=== PATIENT | male | born 1955 | race African-American/Black ===

== ENCOUNTER 2016-09-23 13:38 | Emergency (ER) | payer MEDICARE ==
[2016-09-23] MEDS ORDERED: ONDANSETRON 4 MG TAB.RAPDIS PO ONE (13:52)
--- NOTE | 2016-09-23 13:53 | ER Document Report ---
ED Medical Screen (RME) - General Stated Complaint: ABDOMINAL PAIN Mode of Arrival: Ambulatory Information source: Patient Notes: Patient presents to the emergency department with abdominal pain and vomiting since Wednesday. Last emesis 2 hours ago. Last bowel movement yesterday, last normal BM wednesday, reports decreased appetite. I have greeted and performed a rapid initial assessment of this patient. A comprehensive ED assessment and evaluation of the patient, analysis of test results and completion of the medical decision making process will be conducted by additional ED providers. TRAVEL OUTSIDE OF THE [place] IN LAST 30 DAYS: No - Related Data Allergies/Adverse Reactions: No Known Allergies Allergy (Verified 09/23/16 13:49) Past Medical History - Past Medical History Cardiac Medical History: Reports: Hx Coronary Artery Disease, Hx Hypertension Endocrine Medical History: Reports: Hx Diabetes Mellitus Type 2 GI Medical History: Reports: Hx Gastroesophageal Reflux Disease Musculoskeltal Medical History: Reports Hx Arthritis Past Surgical History: Reports: Hx Open Heart Surgery - stent - Immunizations Hx Diphtheria, Pertussis, Tetanus Vaccination: Yes
[2016-09-23 14:46] LABS: APPEARANCE,URINE CLEAR; BILIRUBIN,URINE NEGATIVE (NEGATIVE); GLUCOSE, URINE NEGATIVE (NEGATIVE); KETONES,URINE NEGATIVE (NEGATIVE); LEUKOCYTE ESTERASE,URINE NEGATIVE (NEGATIVE); NITRITE,URINE NEGATIVE (NEGATIVE); PROTEIN,URINE 30 mg/dL (NEGATIVE); URINE SPECIFIC GRAVITY 1.012; UROBILINOGEN,URINE NEGATIVE mg/dL (<2.0)
[2016-09-23 14:50] LABS: ABSOLUTE LYMPHOCYTES (AUTO) 1.7 10^3/uL (0.5-4.7); ABSOLUTE MONOCYTES (AUTO) 0.5 10^3/uL (0.1-1.4); ABSOLUTE NEUT (AUTO) 5.1 10^3/uL (1.7-8.2); BASOPHILS % (AUTO) 0.1 % (0-2); EOSINOPHILS % (AUTO) 0.3 % (0-6); HEMATOCRIT 47.2 % (37.9-51.0); HGB HCT DIFFERENCE -2.2; LYMPHOCYTES % (AUTO) 23.7 % (13-45); MEAN CORPUSCULAR HEMOGLOBIN 26.2 pg (27.0-33.4); MEAN CORPUSCULAR HGB CONC 31.8 g/dL (32.0-36.0); MEAN CORPUSCULAR VOLUME 82 fl (80-97); MONOCYTES % (AUTO) 6.6 % (3-13); RED BLOOD COUNT 5.73 10^6/uL (4.35-5.55); RED CELL DISTRIBUTION WIDTH 14.5 % (11.5-14.0); SEGMENTED NEUTROPHILS % (AUTO) 69.3 % (42-78); WHITE BLOOD COUNT 7.4 10^3/uL (4.0-10.5)
[2016-09-23 15:10] LABS: ALANINE AMINOTRANSFERASE 19 U/L (21-72); ALBUMIN 4.4 g/dL (3.5-5.0); ALKALINE PHOSPHATASE 92 U/L (38-126); ANION GAP 13 (5-19); ASPARTATE AMINO TRANSFERASE 23 U/L (17-59); BILIRUBIN,TOTAL 1.3 mg/dL (0.2-1.3); BLOOD UREA NITROGEN 14 mg/dL (7-20); CALCIUM 10.3 mg/dL (8.4-10.2); CARBON DIOXIDE 31 mmol/L (22-30); CHLORIDE 97 mmol/L (98-107); CREATININE RESULT 1.36 mg/dL (0.52-1.25); GLUCOSE 84 mg/dL (75-110); LIPASE 118.6 U/L (23-300); POTASSIUM 4.4 mmol/L (3.6-5.0); SODIUM 140.8 mmol/L (137-145)
--- NOTE | 2016-09-23 15:23 | ER Document Report ---
ED General - General Chief Complaint: Abdominal Pain Stated Complaint: ABDOMINAL PAIN Time seen by provider: 15:21 Mode of Arrival: Ambulatory Notes: This is a 60-year-old male with a history of hypertension and type II diabetes mellitus and hyperlipidemia that presents today with hypogastric pain since Wednesday night. He states that his intermittent sharp 10 out of 10 pain that radiates to the epigastric region. Admits to subjective fever and vomiting. He states that he vomited twice this morning. Denies chest pain and chills. Here in the emergency department he was given Zofran and he states that his abdominal pain has completely went away. TRAVEL OUTSIDE OF THE [place] IN LAST 30 DAYS: No - Related Data Allergies/Adverse Reactions: No Known Allergies Allergy (Verified 09/23/16 13:49) Past Medical History - General Information source: Patient - Social History Smoking Status: Never Smoker Chew tobacco use (# tins/day): No Frequency of alcohol use: None Drug Abuse: None Family History: Reviewed & Not Pertinent Patient has suicidal ideation: No Patient has homicidal ideation: No - Past Medical History Cardiac Medical History: Reports: Hx Coronary Artery Disease, Hx Hypertension Endocrine Medical History: Reports: Hx Diabetes Mellitus Type 2 Renal/ Medical History: Denies: Hx Peritoneal Dialysis GI Medical History: Reports: Hx Gastroesophageal Reflux Disease Musculoskeltal Medical History: Reports Hx Arthritis Past Surgical History: Reports: Hx Open Heart Surgery - stent - Immunizations Hx Diphtheria, Pertussis, Tetanus Vaccination: Yes Review of Systems - Review of Systems Constitutional: Fever - Subjective fever EENT: No symptoms reported Cardiovascular: No symptoms reported. denies: Chest pain Respiratory: No symptoms reported Gastrointestinal: See HPI Genitourinary: No symptoms reported. denies: Burning, Dysuria Male Genitourinary: denies: Testicular pain, Penile discharge Musculoskeletal: No symptoms reported Skin: No symptoms reported Hematologic/Lymphatic: No symptoms reported Neurological/Psychological: No symptoms reported Physical Exam - Vital signs Vitals: Temp Pulse Resp BP Pulse Ox 98.1 F 89 18 148/89 H 98 09/23/16 15:53 09/23/16 15:53 09/23/16 15:53 09/23/16 15:53 09/23/16 15:53 - General General appearance: Appears well In distress: None - HEENT Head: Normocephalic, Atraumatic, Open wounds Eyes: Normal Conjunctiva: Normal - Respiratory Respiratory status: No respiratory distress Breath sounds: Normal - Cardiovascular Rhythm: Regular Heart sounds: Normal auscultation - Abdominal Inspection: Normal Bowel sounds: Normal Tenderness: Nontender - Back Back: Normal. No: CVA tenderness - Extremities General upper extremity: Normal inspection, Nontender, Normal ROM, Normal strength General lower extremity: Normal inspection, Nontender, Normal ROM, Normal strength - Neurological Cognition: Normal. No: Confused - Psychological Associated symptoms: Normal affect, Normal mood - Skin Skin Temperature: Warm Skin Moisture: Dry Skin Color: Normal Course - Re-evaluation Re-evalutation: 09/23/16 15:45 She currently denies all symptoms. He states that he is much better after receiving Zofran. 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 Patient denies chest pain and abdominal pain. He was given multiple opportunities to ask questions. Labs were shared with the patient. - Vital Signs Vital signs: Temp Pulse Resp BP Pulse Ox 98.1 F 89 18 148/89 H 98 09/23/16 15:53 09/23/16 15:53 09/23/16 15:53 09/23/16 15:53 09/23/16 15:53 - Laboratory Result Diagrams: 09/23/16 13:58 09/23/16 13:58 Laboratory results interpreted by me: 09/23/16 09/23/16 09/23/16 13:58 13:58 13:58 RBC 5.73 H MCH 26.2 L MCHC 31.8 L RDW 14.5 H Chloride 97 L Carbon Dioxide 31 H Creatinine 1.36 H Est GFR (Non-Af Amer) 53 L Calcium 10.3 H ALT 19 L Urine Protein 30 H Discharge - Discharge Clinical Impression: Abdominal pain Qualifiers: Abdominal location: periumbilical Qualified Code(s): R10.33 - Periumbilical pain Condition: Good Disposition: HOME, SELF-CARE Additional Instructions: Return to the emergency department if symptoms worsen. Follow-up with primary care physician and linseed oil boiler as soon as possible. Abdominal Pain There are many causes of abdominal pain. Pain can mean a serious problem requiring surgery (such as appendicitis). It can also be an innocent problem that goes away on its own (such as a viral infection). Often, time must pass to determine the cause of pain. The physician does not feel that hospitalization is necessary, at present. Things may change within the next 24 hours. Call the doctor or come back for re- examination if any problems occur, such as: (1) Pain that becomes more severe, steady, or becomes concentrated in one specific area. Also, pain that is more severe with movement or coughing. (2) Vomiting that persists or becomes more frequent. (3) Blood in the vomitus, urine, or bowel movements. Blood in the stool may have a tarry or black appearance. (4) Shaking chills or fever greater than 100 degrees F. (5) The abdomen becomes more distended or swollen. (6) Bowel movements cease. (7) Failure to improve as expected. Prescriptions: Ondansetron [Zofran Odt 4 mg Tablet] 1 - 2 tab PO Q4H PRN #15 tab.rapdis PRN Reason: For Nausea/Vomiting Referrals: NAJMA RAM MD [Primary Care Provider] - Follow up as needed
[2016-09-23 15:55] VITALS: BP 148/89
== END 2016-09-23 15:56 | disposition home or self-care (01) ==
LOC: ER 13:38
DX: R10.33 Periumbilical pain (principal); E11.9 Type 2 diabetes mellitus without complications; I10 Essential (primary) hypertension; R11.10 Vomiting, unspecified; I25.10 Atherosclerotic heart disease of native coronary artery without angina pectoris; Z87.19 Personal history of other diseases of the digestive system; Z98.61 Coronary angioplasty status
CPT/HCPCS: 99284; 36415; 83690; 85025; 80053; 81001; A9270; S0119

== ENCOUNTER → 2016-10-05 | Outpatient (CLI) | payer MEDICARE ==
[2016-10-05 09:23] LABS: ABSOLUTE EOSINOPHILS # (AUTO) 0.1 10^3/uL (0.0-0.6); ABSOLUTE LYMPHOCYTES (AUTO) 2.6 10^3/uL (0.5-4.7); ABSOLUTE MONOCYTES (AUTO) 0.6 10^3/uL (0.1-1.4); ABSOLUTE NEUT (AUTO) 3.1 10^3/uL (1.7-8.2); BASOPHILS % (AUTO) 0.3 % (0-2); EOSINOPHILS % (AUTO) 1.5 % (0-6); HEMATOCRIT 44.1 % (37.9-51.0); HEMOGLOBIN 14.3 g/dL (13.5-17.0); HGB HCT DIFFERENCE -1.2; LYMPHOCYTES % (AUTO) 39.9 % (13-45); MEAN CORPUSCULAR HEMOGLOBIN 26.5 pg (27.0-33.4); MEAN CORPUSCULAR HGB CONC 32.5 g/dL (32.0-36.0); MEAN CORPUSCULAR VOLUME 82 fl (80-97); MONOCYTES % (AUTO) 9.1 % (3-13); RED CELL DISTRIBUTION WIDTH 14.6 % (11.5-14.0); SEGMENTED NEUTROPHILS % (AUTO) 49.2 % (42-78); WHITE BLOOD COUNT 6.4 10^3/uL (4.0-10.5)
[2016-10-05 09:41] LABS: ALANINE AMINOTRANSFERASE 25 U/L (21-72); ALBUMIN 4.6 g/dL (3.5-5.0); ALKALINE PHOSPHATASE 86 U/L (38-126); AMYLASE 63 U/L (30-110); ANION GAP 13 (5-19); ASPARTATE AMINO TRANSFERASE 20 U/L (17-59); BILIRUBIN,TOTAL 1.1 mg/dL (0.2-1.3); BLOOD UREA NITROGEN 23 mg/dL (7-20); CALCIUM 10.4 mg/dL (8.4-10.2); CARBON DIOXIDE 29 mmol/L (22-30); CHLORIDE 100 mmol/L (98-107); CREATININE RESULT 1.61 mg/dL (0.52-1.25); GLUCOSE 142 mg/dL (75-110); POTASSIUM 4.3 mmol/L (3.6-5.0); SODIUM 142.1 mmol/L (137-145); TOTAL PROTEIN 7.4 g/dL (6.3-8.2)
== END ==
LOC: OD 08:35
PROVIDERS: ATTEND Specialist
DX: R10.9 Unspecified abdominal pain (principal); K31.0 Acute dilatation of stomach; D50.9 Iron deficiency anemia, unspecified; R11.11 Vomiting without nausea
CPT/HCPCS: 36415; 80053; 82150; 83690; 85025

== ENCOUNTER 2016-10-23 08:31 | Day surgery (SDC) | payer MEDICARE ==
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
[~2016-10-23 08:31] MED LIST: EPINEPHRINE INJ 1 MG/10 ML DISP.SYRIN ONE; FENTANYL CITRATE INJ/PF 100 MCG/2 ML AMPUL ONE; FLUMAZENIL INJ 0.5 MG/5 ML VIAL IV ONE; GLYCOPYRROLATE INJ 0.4 MG/2 ML VIAL ONE; MIDAZOLAM 2 MG/2 ML INJ ONE; NALOXONE HCL INJ/PF 0.4 MG/1 ML SDV ONE; ONDANSETRON HCL INJ/PF 4 MG/2 ML SDV ONE; PROMETHAZINE HCL INJ 25 MG/1 ML VIAL ONE
[2016-10-23 10:48] VITALS: BP 136/72
[2016-10-23 10:52] LABS: ABSOLUTE EOSINOPHILS # (AUTO) 0.1 10^3/uL (0.0-0.6); ABSOLUTE LYMPHOCYTES (AUTO) 2.3 10^3/uL (0.5-4.7); ABSOLUTE MONOCYTES (AUTO) 0.6 10^3/uL (0.1-1.4); BASOPHILS % (AUTO) 0.6 % (0-2); EOSINOPHILS % (AUTO) 1.6 % (0-6); HEMATOCRIT 43.6 % (37.9-51.0); HEMOGLOBIN 14.1 g/dL (13.5-17.0); HGB HCT DIFFERENCE -1.3; LYMPHOCYTES % (AUTO) 32.6 % (13-45); MEAN CORPUSCULAR HEMOGLOBIN 26.2 pg (27.0-33.4); MEAN CORPUSCULAR HGB CONC 32.4 g/dL (32.0-36.0); MEAN CORPUSCULAR VOLUME 81 fl (80-97); RED BLOOD COUNT 5.39 10^6/uL (4.35-5.55); RED CELL DISTRIBUTION WIDTH 14.5 % (11.5-14.0); SEGMENTED NEUTROPHILS % (AUTO) 57.2 % (42-78)
[2016-10-23 11:08] LABS: ALANINE AMINOTRANSFERASE 37 U/L (21-72); ALBUMIN 3.8 g/dL (3.5-5.0); ALKALINE PHOSPHATASE 88 U/L (38-126); AMYLASE 38 U/L (30-110); ANION GAP 10 (5-19); ASPARTATE AMINO TRANSFERASE 25 U/L (17-59); BILIRUBIN,TOTAL 1.3 mg/dL (0.2-1.3); BLOOD UREA NITROGEN 21 mg/dL (7-20); CARBON DIOXIDE 30 mmol/L (22-30); CHLORIDE 98 mmol/L (98-107); CREATININE RESULT 1.38 mg/dL (0.52-1.25); GLUCOSE 166 mg/dL (75-110); LIPASE 193.3 U/L (23-300); POTASSIUM 4.3 mmol/L (3.6-5.0); SODIUM 138.1 mmol/L (137-145); TOTAL PROTEIN 7.3 g/dL (6.3-8.2)
[2016-10-23 11:39] LABS: CARCINOEMBRYONIC ANTIGEN 1.9 ng/mL (<3.0)
--- NOTE | 2016-10-23 18:09 | OPERATIVE REPORT E ---
Operative Report NAME: GEGE SPEARS : 1955 AGE: 60Y DATE OF SURGERY: 10/23/2016 ROOM: PREOPERATIVE DIAGNOSES: 1. VOMITING. 2. ABDOMINAL PAIN. 3. HIATUS HERNIA. POSTOPERATIVE DIAGNOSIS: LARGE HIATUS HERNIA ABOUT 6 CM IN LENGTH SLIDING HIATUS HERNIA. OPERATION: 1. Esophagoscopy. 2. Gastroscopy. 3. Duodenoscopy. SURGEON: ANN MARIE JONES M.D. ANESTHESIA: Versed 2, fentanyl 50. We did not give the patient Robinul, there was question that he may have glaucoma. TISSUE REMOVED OR ALTERED: Gastric biopsy for H. pylori. PROCEDURE: Baby scope passed under guided vision, no difficulties. Esophagoscopy; junction at 30. Mild esophagitis. Gastroscopy; large hiatus hernia 6 cm. Mild gastritis. Biopsy obtained H. pylori. Duodenoscopy; no ulcers. Mild duodenitis. CONCLUSIONS: Large hiatus hernia with mild esophagitis, mild gastritis, mild duodenitis. PLAN: Continue Nexium. Soft diet. Lab studies. Awaiting biopsy. DICTATING PHYSICIAN: ANN MARIE JONES M.D. [id number] PHY#: [id number] ID: [id number] JOB#: [id number] ACCT: [id number] cc:ANN MARIE JONES M.D. >
--- NOTE | 2016-10-23 18:16 | DISCHARGE SUMMARY E ---
Discharge Summary NAME: GEGE SPEARS : 1955 AGE: 60Y ADMITTED: 10/23/2016 DISCHARGED: 10/23/2016 HOSPITAL COURSE : The patient is a 60-year-old male known to me for many years regarding reflux and large hernia presented with exacerbation of reflux and vomiting, abdominal bloating. Upper scope today shows no ulcers, no malignancy, large hiatus hernia with moderate gastritis, mild esophagitis, mild duodenitis. DISCHARGE PLAN: Awaiting biopsy results, lab studies. Continue Nexium. Consider weight reduction. DICTATING PHYSICIAN: ANN MARIE JONES M.D. [id number] PHY#: [id number] ID: [id number] JOB#: [id number] ACCT: [id number] cc:ANN MARIE JONES M.D. >
== END 2016-10-23 11:05 | disposition home or self-care (01) ==
LOC: END 08:31
PROVIDERS: ATTEND Specialist
PROC: 0DB68ZX Excision of Stomach, Via Natural or Artificial Opening Endoscopic, Diagnostic (ICD-10-PCS; principal; 2016-10-23 09:00)
DX: K21.9 Gastro-esophageal reflux disease without esophagitis (principal); K44.9 Diaphragmatic hernia without obstruction or gangrene; K21.0 Gastro-esophageal reflux disease with esophagitis; K31.9 Disease of stomach and duodenum, unspecified; R97.0 Elevated carcinoembryonic antigen [CEA]; Z12.5 Encounter for screening for malignant neoplasm of prostate; K29.80 Duodenitis without bleeding; E11.9 Type 2 diabetes mellitus without complications; Z79.899 Other long term (current) drug therapy; Z79.82 Long term (current) use of aspirin; Z98.61 Coronary angioplasty status
CPT/HCPCS: 43239; 36415; 82962; 82150; 82378; 83690; 85025; 80053; 88342 ×2; 88305 ×2; G0103; J2250; J3010; J2405; J0171; J2310; J2550; J3490

== ENCOUNTER 2018-01-25 14:21 | Emergency (ER) | payer MEDICARE ==
[2018-01-25] MEDS ORDERED: METFORMIN HCL 500 MG TABLET PO ONE (15:33)
--- NOTE | 2018-01-25 15:35 | ER Document Report ---
ED Medical Screen (RME) - General Chief Complaint: High Blood Sugar Stated Complaint: BLOOD SUGAR PROBLEMS Time Seen by Provider: 01/25/18 15:25 Notes: RAPID MEDICAL EVALUATION DISCLOSURE I have seen this patient as part of a Rapid Medical Evaluation and, if applicable, placed any initially appropriate orders. The patient will be seen and fully evaluated, including a full history and physical exam, by a provider ( in Main ED or Fast Track) when a room becomes available. 62-year-old male PMH diabetes here with complaints of elevated blood sugar around 200-240. He has run out of his Glucophage for the last 2 weeks and does not have any refills. He does not like to go to the doctor and therefore he has not gone to see his PCP to get a refill. He denies any symptoms other than increased thirst and urination but no dysuria fevers chills nausea vomiting abdominal pain. EXAM CTAB RRR No abdominal TTP TRAVEL OUTSIDE OF THE [place] IN LAST 30 DAYS: No - Related Data Allergies/Adverse Reactions: No Known Allergies Allergy (Verified 10/23/16 08:35) Past Medical History - Social History Chew tobacco use (# tins/day): No Frequency of alcohol use: None Drug Abuse: None - Past Medical History Cardiac Medical History: Reports: Hx Coronary Artery Disease, Hx Heart Attack, Hx Hypertension Pulmonary Medical History: Denies: Hx Asthma, Hx Bronchitis, Hx COPD, Hx Pneumonia Neurological Medical History: Denies: Hx Cerebrovascular Accident, Hx Seizures Endocrine Medical History: Reports: Hx Diabetes Mellitus Type 2 Renal/ Medical History: Denies: Hx Peritoneal Dialysis GI Medical History: Reports: Hx Gastroesophageal Reflux Disease, Hx Hiatal Hernia Musculoskeltal Medical History: Reports Hx Arthritis Past Surgical History: Reports: Hx Open Heart Surgery - stent - Immunizations Hx Diphtheria, Pertussis, Tetanus Vaccination: No Physical Exam - Vital signs Vitals: Temp Pulse Resp BP Pulse Ox 98.2 F 91 16 193/99 H 95 01/25/18 14:47 01/25/18 14:47 01/25/18 14:47 01/25/18 14:47 01/25/18 14:47 Course - Vital Signs Vital signs: Temp Pulse Resp BP Pulse Ox 98.2 F 91 16 193/99 H 95 01/25/18 14:47 01/25/18 14:47 01/25/18 14:47 01/25/18 14:47 01/25/18 14:47
[2018-01-25 16:08] LABS: ABSOLUTE EOSINOPHILS # (AUTO) 0.1 10^3/uL (0.0-0.6); ABSOLUTE LYMPHOCYTES (AUTO) 2.7 10^3/uL (0.5-4.7); ABSOLUTE MONOCYTES (AUTO) 0.7 10^3/uL (0.1-1.4); ABSOLUTE NEUT (AUTO) 4.8 10^3/uL (1.7-8.2); BASOPHILS % (AUTO) 0.4 % (0-2); EOSINOPHILS % (AUTO) 0.9 % (0-6); HEMATOCRIT 47.1 % (37.9-51.0); HEMOGLOBIN 15.4 g/dL (13.5-17.0); LYMPHOCYTES % (AUTO) 32.9 % (13-45); MEAN CORPUSCULAR HEMOGLOBIN 26.4 pg (27.0-33.4); MEAN CORPUSCULAR HGB CONC 32.6 g/dL (32.0-36.0); MEAN CORPUSCULAR VOLUME 81 fl (80-97); MONOCYTES % (AUTO) 7.9 % (3-13); PLATELET COUNT 319 10^3/uL (150-450); RED BLOOD COUNT 5.83 10^6/uL (4.35-5.55); RED CELL DISTRIBUTION WIDTH 14.6 % (11.5-14.0); SEGMENTED NEUTROPHILS % (AUTO) 57.9 % (42-78); TOTAL CELLS COUNTED % (AUTO) 100 %; WHITE BLOOD COUNT 8.2 10^3/uL (4.0-10.5)
[2018-01-25 16:17] LABS: APPEARANCE,URINE CLEAR; BILIRUBIN,URINE NEGATIVE (NEGATIVE); COLOR,URINE YELLOW; GLUCOSE, URINE >=500 mg/dL (NEGATIVE); KETONES,URINE NEGATIVE (NEGATIVE); LEUKOCYTE ESTERASE,URINE NEGATIVE (NEGATIVE); NITRITE,URINE NEGATIVE (NEGATIVE); PROTEIN,URINE >=500 mg/dL (NEGATIVE); URINE SPECIFIC GRAVITY 1.023; UROBILINOGEN,URINE NEGATIVE mg/dL (<2.0)
[2018-01-25 16:23] LABS: ALANINE AMINOTRANSFERASE 38 U/L (21-72); ALBUMIN 4.1 g/dL (3.5-5.0); ALKALINE PHOSPHATASE 166 U/L (38-126); ANION GAP 10 (5-19); ASPARTATE AMINO TRANSFERASE 32 U/L (17-59); BILIRUBIN,DIRECT 0.3 mg/dL (0.0-0.4); BILIRUBIN,TOTAL 1.3 mg/dL (0.2-1.3); BLOOD UREA NITROGEN 15 mg/dL (7-20); CALCIUM 10.3 mg/dL (8.4-10.2); CARBON DIOXIDE 30 mmol/L (22-30); CHLORIDE 100 mmol/L (98-107); GLUCOSE 295 mg/dL (75-110); PHOSPHORUS 4.2 mg/dL (2.5-4.5); POTASSIUM 4.2 mmol/L (3.6-5.0); SODIUM 140.3 mmol/L (137-145); TOTAL PROTEIN 7.7 g/dL (6.3-8.2)
[2018-01-25] MEDS ORDERED: NORMAL SALINE 1000 ML 1,500 ML IV ONE (17:29)
[2018-01-25] MEDS ORDERED: LISINOPRIL 10 MG TABLET PO ONE (17:30)
--- NOTE | 2018-01-25 17:37 | ER Document Report ---
ED General - General Chief Complaint: High Blood Sugar Stated Complaint: BLOOD SUGAR PROBLEMS Time Seen by Provider: 01/25/18 15:25 Notes: Patient is a 62-year-old male who states he has been out of his blood pressure medications for 1 month and his metformin for greater than 2 months. Patient states he has 1 more tablet of glyburide. He does not remember the metformin, lisinopril, or glyburide dosages. Patient comes with his 's urging secondary to some increased urination. He denies any headache, chest pain, abdominal pain, nausea, vomiting, or fevers. TRAVEL OUTSIDE OF THE [place] IN LAST 30 DAYS: No - HPI Onset: Other - See above Onset/Duration: Gradual Quality of pain: No pain Severity: None Pain Level: Denies - See above Associated symptoms: Other - See above Exacerbated by: Denies Relieved by: Denies Similar symptoms previously: No Recently seen / treated by doctor: No - Related Data Allergies/Adverse Reactions: No Known Allergies Allergy (Verified 10/23/16 08:35) Past Medical History - General Information source: Patient - Social History Smoking Status: Unknown if Ever Smoked Cigarette use (# per day): No Chew tobacco use (# tins/day): No Smoking Education Provided: No Frequency of alcohol use: None Drug Abuse: None Family History: Reviewed & Not Pertinent Patient has suicidal ideation: No Patient has homicidal ideation: No - Past Medical History Cardiac Medical History: Reports: Hx Coronary Artery Disease, Hx Heart Attack, Hx Hypertension Pulmonary Medical History: Denies: Hx Asthma, Hx Bronchitis, Hx COPD, Hx Pneumonia Neurological Medical History: Denies: Hx Cerebrovascular Accident, Hx Seizures Endocrine Medical History: Reports: Hx Diabetes Mellitus Type 2 Renal/ Medical History: Denies: Hx Peritoneal Dialysis GI Medical History: Reports: Hx Gastroesophageal Reflux Disease, Hx Hiatal Hernia Musculoskeltal Medical History: Reports Hx Arthritis Past Surgical History: Reports: Hx Open Heart Surgery - stent - Immunizations Hx Diphtheria, Pertussis, Tetanus Vaccination: No Review of Systems - Review of Systems Constitutional: denies: Fever EENT: denies: Eye discharge, Nose discharge Cardiovascular: denies: Syncope, Dizziness Respiratory: denies: Short of breath Gastrointestinal: denies: Vomiting Genitourinary: denies: Dysuria Musculoskeletal: denies: Leg swelling Skin: Other - no hives. denies: Rash Neurological/Psychological: Other - no slurred speech -: Yes All other systems reviewed and negative Physical Exam - Vital signs Vitals: Temp Pulse Resp BP Pulse Ox 98.2 F 91 16 193/99 H 95 01/25/18 14:47 01/25/18 14:47 01/25/18 14:47 01/25/18 14:47 01/25/18 14:47 Notes: Reviewed vital signs and nursing note as charted by RN. CONSTITUTIONAL: Alert and oriented and responds appropriately to questions. Well -appearing; well-nourished HEAD: Normocephalic; atraumatic EYES: PERRL; Conjunctivae clear, sclerae non-icteric ENT: Normal nose; no rhinorrhea; moist mucous membranes NECK: Supple without meningismus; non-tender CARD: Regular rate and rhythm; no murmurs RESP: Normal chest excursion without splinting or tachypnea; breath sounds clear and equal bilaterally ABD/GI: Normal bowel sounds; non-distended; soft, non-tender BACK: The back appears normal and is non-tender to palpation EXT: Normal ROM in all joints; non-tender to palpation, no edema SKIN: Normal color for age and race; warm; no acute lesions noted NEURO: Moves all extremities equally; Motor and sensory function intact PSYCH: The patient's mood and manner are appropriate. Grooming and personal hygiene are appropriate. Course - Re-evaluation Re-evalutation: Given the above history and physical examination with vital signs as recorded showing elevated blood pressure, we will obtain basic labs including kidney function and urine analysis. Accu-Chek as recorded. 01/25/18 17:33 Labs as recorded. I have called and verified with the pharmacy that the patient follows his lisinopril, metformin, and glyburide dosages. I will refill the patient's prescriptions and provide a liter and a half of fluid and a full dose of lisinopril. Metformin was provided in triage. Patient will be discharged home with strict return precautions with follow-up with the primary care provider. - Vital Signs Vital signs: Temp Pulse Resp BP Pulse Ox 98.2 F 91 16 193/99 H 95 01/25/18 14:47 01/25/18 14:47 01/25/18 14:47 01/25/18 14:47 01/25/18 14:47 - Laboratory Result Diagrams: 01/25/18 15:40 01/25/18 15:40 Laboratory results interpreted by me: 01/25/18 01/25/18 01/25/18 15:40 15:40 15:40 RBC 5.83 H MCH 26.4 L RDW 14.6 H Creatinine 1.44 H Est GFR (Non-Af Amer) 50 L Glucose 295 H POC Glucose Calcium 10.3 H Alkaline Phosphatase 166 H Urine Protein >=500 H Urine Glucose (UA) >=500 H 01/25/18 15:43 RBC MCH RDW Creatinine Est GFR (Non-Af Amer) Glucose POC Glucose 260 H Calcium Alkaline Phosphatase Urine Protein Urine Glucose (UA) Discharge - Discharge Clinical Impression: Hyperglycemia, Noncompliance w/medication treatment due to intermit use of medication Hypertension Qualifiers: Hypertension type: unspecified Qualified Code(s): I10 - Essential (primary) hypertension Condition: Good Disposition: HOME, SELF-CARE Prescriptions: Glyburide [Diabeta 5 mg Tablet] 5 mg PO BID #60 tablet Lisinopril/Hydrochlorothiazide [Lisinopril-Hctz 20-25 mg Tab] 1 each PO DAILY # 30 tablet Metformin HCl [Glucophage 500 mg Tablet] 500 mg PO BID #60 tablet Simvastatin 10 mg PO DAILY #30 tablet Referrals: NAJMA RAM MD [Primary Care Provider] - Follow up as needed
[2018-01-25 20:11] VITALS: BP 183/99
== END 2018-01-25 20:07 | disposition home or self-care (01) ==
LOC: ER 14:21
DX: I10 Essential (primary) hypertension (principal); E11.65 Type 2 diabetes mellitus with hyperglycemia; Z91.14 Patient's other noncompliance with medication regimen
CPT/HCPCS: 99285; 96360; 36415; 82962; 83735; 84100; 85025; 80053; 81001; A9270 ×2; J7030

== ENCOUNTER 2018-05-28 20:28 | Emergency (ER) | payer MEDICARE ==
[2018-05-28 22:30] LABS: ABSOLUTE EOSINOPHILS # (AUTO) 0.1 10^3/uL (0.0-0.6); ABSOLUTE LYMPHOCYTES (AUTO) 3.4 10^3/uL (0.5-4.7); ABSOLUTE MONOCYTES (AUTO) 0.6 10^3/uL (0.1-1.4); ABSOLUTE NEUT (AUTO) 3.7 10^3/uL (1.7-8.2); BASOPHILS % (AUTO) 0.4 % (0-2); EOSINOPHILS % (AUTO) 1.2 % (0-6); HEMATOCRIT 48.1 % (37.9-51.0); HEMOGLOBIN 16.1 g/dL (13.5-17.0); LYMPHOCYTES % (AUTO) 43.2 % (13-45); MEAN CORPUSCULAR HEMOGLOBIN 26.8 pg (27.0-33.4); MEAN CORPUSCULAR HGB CONC 33.5 g/dL (32.0-36.0); MEAN CORPUSCULAR VOLUME 80 fl (80-97); MONOCYTES % (AUTO) 7.3 % (3-13); PLATELET COUNT 309 10^3/uL (150-450); RED BLOOD COUNT 6.01 10^6/uL (4.35-5.55); RED CELL DISTRIBUTION WIDTH 14.6 % (11.5-14.0); SEGMENTED NEUTROPHILS % (AUTO) 47.9 % (42-78); TOTAL CELLS COUNTED % (AUTO) 100 %; WHITE BLOOD COUNT 7.8 10^3/uL (4.0-10.5)
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
[2018-05-28 23:09] LABS: APPEARANCE,URINE CLEAR; BILIRUBIN,URINE NEGATIVE (NEGATIVE); COLOR,URINE STRAW; GLUCOSE, URINE >=500 mg/dL (NEGATIVE); KETONES,URINE NEGATIVE (NEGATIVE); LEUKOCYTE ESTERASE,URINE NEGATIVE (NEGATIVE); NITRITE,URINE NEGATIVE (NEGATIVE); PROTEIN,URINE >=500 mg/dL (NEGATIVE); URINE SPECIFIC GRAVITY 1.028; UROBILINOGEN,URINE NEGATIVE mg/dL (<2.0)
[2018-05-28 23:10] LABS: ALANINE AMINOTRANSFERASE 36 U/L (21-72); ALBUMIN 4.3 g/dL (3.5-5.0); ALKALINE PHOSPHATASE 197 U/L (38-126); ANION GAP 11 (5-19); ASPARTATE AMINO TRANSFERASE 31 U/L (17-59); BILIRUBIN,DIRECT 0.4 mg/dL (0.0-0.4); BILIRUBIN,TOTAL 1.3 mg/dL (0.2-1.3); BLOOD UREA NITROGEN 15 mg/dL (7-20); CALCIUM 10.1 mg/dL (8.4-10.2); CARBON DIOXIDE 29 mmol/L (22-30); CHLORIDE 96 mmol/L (98-107); POTASSIUM 3.9 mmol/L (3.6-5.0); SODIUM 135.6 mmol/L (137-145); TOTAL PROTEIN 7.9 g/dL (6.3-8.2)
[2018-05-28 23:38] LABS: GLUCOSE 421 mg/dL (75-110)
[2018-05-29] MEDS ORDERED: NORMAL SALINE 1000 ML 1,000 ML IV PRN (02:20)
[2018-05-29] MEDS ORDERED: METFORMIN HCL 500 MG TABLET PO ONE (02:29)
--- NOTE | 2018-05-29 02:29 | ER Document Report ---
ED General - General Chief Complaint: High Blood Sugar Stated Complaint: BLOOD SUGAR PROBLEM Time Seen by Provider: 05/28/18 22:36 Mode of Arrival: Ambulatory Information source: Patient, Relative Notes: 62-year-old male with type 2 diabetes, hypertension, coronary artery disease presents with concern for elevated blood sugar. Patient states that he has not taking his metformin or glyburide for over 1 week. He states that he left town and did not pack his medication. He denies any nausea, vomiting, abdominal pain , back pain. Patient states that he had an episode of right hand tremors which have resolved. TRAVEL OUTSIDE OF THE [place] IN LAST 30 DAYS: No - HPI Onset: Other Quality of pain: No pain Associated symptoms: denies: Chest pain, Nausea, Vomiting, Shortness of breath Exacerbated by: Denies Relieved by: Denies Similar symptoms previously: Yes Recently seen / treated by doctor: No - Related Data Allergies/Adverse Reactions: No Known Allergies Allergy (Verified 10/23/16 08:35) Past Medical History - General Information source: Patient - Social History Smoking Status: Never Smoker Chew tobacco use (# tins/day): No Frequency of alcohol use: None Drug Abuse: None Lives with: Spouse/Significant other Family History: Reviewed & Not Pertinent Patient has suicidal ideation: No Patient has homicidal ideation: No - Past Medical History Cardiac Medical History: Reports: Hx Coronary Artery Disease, Hx Heart Attack, Hx Hypertension Pulmonary Medical History: Denies: Hx Asthma, Hx Bronchitis, Hx COPD, Hx Pneumonia Neurological Medical History: Denies: Hx Cerebrovascular Accident, Hx Seizures Endocrine Medical History: Reports: Hx Diabetes Mellitus Type 2 Renal/ Medical History: Denies: Hx Peritoneal Dialysis GI Medical History: Reports: Hx Gastroesophageal Reflux Disease, Hx Hiatal Hernia Musculoskeletal Medical History: Reports Hx Arthritis Past Surgical History: Reports: Hx Open Heart Surgery - stent - Immunizations Hx Diphtheria, Pertussis, Tetanus Vaccination: No Review of Systems - Review of Systems Notes: REVIEW OF SYSTEMS: CONSTITUTIONAL : Denies fever, chills, or sweats. Denies recent illness. Denies weight loss, recent hospitalizations. EENT: Denies visual changes, eye pain. Denies sore throat, oral lesions, difficulty swallowing. CARDIOVASCULAR: Denies chest pain. Denies palpitations. Denies lower extremity edema. RESPIRATORY: Denies cough. Denies shortness of breath, wheezing. GASTROINTESTINAL: Denies abdominal pain or distention. Denies nausea, vomiting , or diarrhea. Denies blood in vomitus, stools, or per rectum. Denies black, tarry stools. Denies constipation. GENITOURINARY: Denies difficulty urinating, painful urination, frequency, blood in urine, testicular pain or penile discharge. MUSCULOSKELETAL: Denies back or neck pain or stiffness. Denies joint pain or swelling. SKIN: Denies rash, lesions or sores. HEMATOLOGIC : Denies easy bruising or bleeding. LYMPHATIC: Denies swollen glands. NEUROLOGICAL: Denies confusion or altered mental status. Denies loss of consciousness. Denies dizziness or lightheadedness. Denies headache. Denies weakness or paralysis. Denies problems difficulty with ambulation, slurred speech. Denies sensory loss, numbness, or tingling. Denies seizures. PSYCHIATRIC: Denies anxiety or stress. Denies depression, suicidal ideation, or Physical Exam - Vital signs Vitals: Temp Pulse Resp BP Pulse Ox 98.3 F 103 H 20 199/118 H 97 05/28/18 20:39 05/28/18 20:39 05/28/18 20:39 05/28/18 20:39 05/28/18 20:39 - Notes Notes: PHYSICAL EXAMINATION: GENERAL: Well-appearing, well-nourished and in no acute distress. HEAD: Atraumatic, normocephalic. EYES: Pupils equal round and reactive to light, extraocular movements intact, sclera anicteric, conjunctiva are normal. ENT: Nares patent, oropharynx clear without exudates. Moist mucous membranes. NECK: Normal range of motion, supple without lymphadenopathy LUNGS: Breath sounds clear to auscultation bilaterally and equal. No wheezes rales or rhonchi. HEART: Regular rate and rhythm without murmurs ABDOMEN: Soft, nontender, nondistended abdomen. No guarding, no rebound. No masses appreciated. Musculoskeletal: Normal range of motion, no pitting or edema. No cyanosis. NEUROLOGICAL: Cranial nerves grossly intact. Normal speech, normal gait. Normal sensory, motor exams. No tremulous movement noted. PSYCH: Normal mood, normal affect. SKIN: Warm, Dry, normal turgor, no rashes or lesions noted. Course - Re-evaluation Re-evalutation: 05/31/18 13:31 Laboratory 05/28/18 05/28/18 05/28/18 20:45 22:10 22:10 WBC 7.8 RBC 6.01 H Hgb 16.1 Hct 48.1 MCV 80 MCH 26.8 L MCHC 33.5 RDW 14.6 H Plt Count 309 Seg Neutrophils % 47.9 Lymphocytes % 43.2 Monocytes % 7.3 Eosinophils % 1.2 Basophils % 0.4 Absolute Neutrophils 3.7 Absolute Lymphocytes 3.4 Absolute Monocytes 0.6 Absolute Eosinophils 0.1 Absolute Basophils 0.0 Sodium 135.6 L Potassium 3.9 Chloride 96 L Carbon Dioxide 29 Anion Gap 11 BUN 15 Creatinine 1.54 H Est GFR ( Amer) 56 L Est GFR (Non-Af Amer) 46 L Glucose 421 H* POC Glucose 415 H* Calcium 10.1 Total Bilirubin 1.3 Direct Bilirubin 0.4 Neonat Total Bilirubin Not Reportable Neonat Direct Bilirubin Not Reportable Neonat Indirect Bili Not Reportable AST 31 ALT 36 Alkaline Phosphatase 197 H Total Protein 7.9 Albumin 4.3 Urine Color Urine Appearance Urine pH Ur Specific [place] Urine Protein Urine Glucose (UA) Urine Ketones Urine Blood Urine Nitrite Urine Bilirubin Urine Urobilinogen Ur Leukocyte Esterase Urine WBC (Auto) Urine RBC (Auto) Urine Mucus (Auto) Urine Ascorbic Acid 05/28/18 05/29/18 22:10 04:05 WBC RBC Hgb Hct MCV MCH MCHC RDW Plt Count Seg Neutrophils % Lymphocytes % Monocytes % Eosinophils % Basophils % Absolute Neutrophils Absolute Lymphocytes Absolute Monocytes Absolute Eosinophils Absolute Basophils Sodium Potassium Chloride Carbon Dioxide Anion Gap BUN Creatinine Est GFR ( Amer) Est GFR (Non-Af Amer) Glucose POC Glucose 280 H Calcium Total Bilirubin Direct Bilirubin Neonat Total Bilirubin Neonat Direct Bilirubin Neonat Indirect Bili AST ALT Alkaline Phosphatase Total Protein Albumin Urine Color STRAW Urine Appearance CLEAR Urine pH 6.0 Ur Specific [place] 1.028 Urine Protein >=500 H Urine Glucose (UA) >=500 H Urine Ketones NEGATIVE Urine Blood NEGATIVE Urine Nitrite NEGATIVE Urine Bilirubin NEGATIVE Urine Urobilinogen NEGATIVE Ur Leukocyte Esterase NEGATIVE Urine WBC (Auto) 3 Urine RBC (Auto) 1 Urine Mucus (Auto) RARE Urine Ascorbic Acid NEGATIVE 62-year-old male with type 2 diabetes, hypertension, coronary artery disease presents with concern for elevated blood sugar. Patient states that he has not taking his metformin or glyburide for over 1 week. He states that he left town and did not pack his medication. He denies any nausea, vomiting, abdominal pain , back pain. Patient states that he had an episode of right hand tremors which have resolved. Signs reviewed upon arrival and patient found to be hypertensive. Patient admits to being noncompliant with his blood pressure and diabetic medications for almost 2 weeks. He states that he left town and forgot to pack his medications. Neurologic exam within normal limits. No focal findings on physical exam. Patient does not appear toxic or dehydrated. He is in no distress acute distress. CBC is without leukocytosis or anemia. CMP shows hyperglycemia with DKA. Patient did receive his home medications of metformin, glyburide and IV fluids. Repeat glucose now 280. Patient provided hemoglobin refills for his home medications. Patient provided the opportunity to ask questions, and express concerns. Discharge instructions discussed. Patient is agreeable with discharge home. Return indications explained and discussed with the patient who displays understanding. Patient encouraged to return to the emergency department immediately with any concerns. Results were discussed with the patient at this point, after careful consideration I feel that that patient can be discharged from the emergency department, the patient was educated treatments and reasons to return to the emergency department based on their presumed diagnosis as noted above, they were advised to followup with a primary care physician in 2-3 days. Patient was agreeable to plan of care. Dictation on this chart was performed using voice recognition software and may result in unintended grammatical, spelling, syntax or errors. 05/31/18 13:32 - Vital Signs Vital signs: Temp Pulse Resp BP Pulse Ox 98.2 F 99 20 179/89 H 100 05/29/18 04:20 05/29/18 04:20 05/29/18 04:20 05/29/18 04:20 05/29/18 04:20 - Laboratory Result Diagrams: 05/28/18 22:10 05/28/18 22:10 Laboratory results interpreted by me: 05/28/18 05/28/18 05/28/18 20:45 22:10 22:10 RBC 6.01 H MCH 26.8 L RDW 14.6 H Sodium 135.6 L Chloride 96 L Creatinine 1.54 H Est GFR ( Amer) 56 L Est GFR (Non-Af Amer) 46 L Glucose 421 H* POC Glucose 415 H* Alkaline Phosphatase 197 H Urine Protein Urine Glucose (UA) 05/28/18 05/29/18 22:10 04:05 RBC MCH RDW Sodium Chloride Creatinine Est GFR ( Amer) Est GFR (Non-Af Amer) Glucose POC Glucose 280 H Alkaline Phosphatase Urine Protein >=500 H Urine Glucose (UA) >=500 H Discharge - Discharge Clinical Impression: Noncompliance with medication regimen Hypertension Qualifiers: Hypertension type: unspecified Qualified Code(s): I10 - Essential (primary) hypertension Hyperglycemia due to type 2 diabetes mellitus Qualifiers: Diabetes 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 You did not have any evidence of a dangerous condition associated with these blood sugars at this time. However, it is very important that you get your blood sugars under control. Please take all of your medications exactly as directed. You should avoid foods that are high in carbohydrates and sugary foods. Losing weight will also help to better control your blood sugars. Please return to emergency department immediately if you develop weakness, persistent vomiting, confusion, or any other symptoms that are concerning to you. Regarding Blood Pressure: Your blood pressure was noted to be greater than 120/80 at least once in the emergency room today. It is recommended that you follow-up with her primary care physician in the next week for repeat blood pressure check. The Centers for Medicare and Medicaid Services has specific recommendations regarding a person's blood pressure. There are several lifestyle modifications that are recommended in order to help lower your blood pressure. These include: Quitting smoking if you smoke. Reducing the amount of sodium in your diet. Getting regular exercise Limiting alcohol to no more than 2 drinks a day for men and one drink a day for women. Eating a healthy diet, including more fruits and vegetables, low fat dairy products, less saturated and total fat. Losing weight if you are overweight. FOLLOW-UP: Call your doctor's office and let them know your blood pressure was elevated and you were advised to get your blood pressure checked in the above time-line. If you are unable to get into your doctor's office in this time period, you can follow-up with a new physician (I have left the numbers below for a few primary care doctors affiliated with this special care hospital) or return to the ER. PRIMARY CARE PHYSICIANS: Dr. Landry Hollis [address], [place] [address] [phone] Dr Dyson Address: [address] [place] [address] , [place] [address] Dr Wooten Address: [address] [place] [address] , [place] [address] Prescriptions: Glyburide [Diabeta 5 mg Tablet] 5 mg PO QAM #30 tablet Lisinopril/Hydrochlorothiazide [Lisinopril-Hctz 20-12.5 mg Tab] 1 each PO DAILY #30 tablet Metformin HCl [Glucophage 500 mg Tablet] 500 mg PO BID #60 tablet Forms: Elevated Blood Pressure Referrals: NAJMA RAM MD [Primary Care Provider] - Follow up as needed
[2018-05-29] MEDS ORDERED: GLYBURIDE 5 MG TABLET PO ONE (02:30)
[2018-05-29] MEDS ORDERED: LISINOPRIL 10 MG TABLET PO ONE (03:57)
[2018-05-29 04:22] VITALS: BP 179/89
== END 2018-05-29 04:22 | disposition home or self-care (01) ==
LOC: ER 20:28
DX: E11.65 Type 2 diabetes mellitus with hyperglycemia (principal); I10 Essential (primary) hypertension; Z91.14 Patient's other noncompliance with medication regimen
CPT/HCPCS: 99283; 96360; 36415; 82962; 85025; 80053; 81001; A9270 ×3; J3490